=== PATIENT | male | born 1960 | race Caucasian/White ===

== ENCOUNTER → 2018-03-26 16:18 | Outpatient (CLI) | payer OTHER, SELFPAY ==
--- NOTE | 2018-03-26 | DI.MRI.S_ITS ---
PROCEDURE: MR LUMBAR SPINE WO CON INDICATIONS: LOW BACK PAIN. BIALTERAL LEG RADICULAR PAIN TECHNIQUE: Noncontrast sagittal T1 spin echo and T2 fast echo, sagittal STIR, axial T1 and T2 fast spin echo through the lumbar spine. In cases with scoliosis, additional coronal T2 fast spin echo may be performed. COMPARISON: None. FINDINGS: Image quality: Excellent. Alignment and Curvature: No plain films are available for comparison, for numbering purposes. Thus, for the purposes of this examination, 5 lumbar type vertebral bodies will be presumed, as denoted on the montage panel. This should be confirmed and correlated with plain films, prior to any lumbar spinal intervention. Mild grade 1 retrolisthesis of L3 on L4 is present. Mild grade 1 retrolisthesis of L5 on S1 is present. Bone Marrow: Marrow is of normal overall signal. No acute vertebral body compression fractures. Severe reactive signal within the endplates adjacent to the L3-L4 and L4-L5 intervertebral discs are of moderate reactive signal adjacent to the T12-L1 and L5-S1 intervertebral discs. Mild reactive signal adjacent to the L2-L3 intervertebral disc. Spinal Cord: Conus medullaris terminates at the L1-L2 disc space level. Visualized cord demonstrates normal signal and size. Paraspinous Soft Tissues: No paravertebral masses. L1-L2: Bilateral facet hypertrophy. No significant canal, nor foraminal stenosis. L2-L3: Disc desiccation and diffuse disc bulge. Bilateral facet hypertrophy, and ligamentum hypertrophy. Mild canal stenosis. Mild foraminal stenosis bilaterally. L3-L4: Disc desiccation and diffuse disc bulge, with superimposed right paracentral protrusion. Bilateral facet and ligamentum flavum hypertrophy. Epidural lipomatosis. Severe canal stenosis. Mild foraminal stenosis bilaterally. L4-L5: Disco loss and desiccation, as well as diffuse disc bulge/osteophyte. Bilateral facet and ligament flavum hypertrophy. Epidural lipomatosis. Severe canal stenosis. Moderate foraminal stenosis bilaterally. L5-S1: Disc height loss and desiccation, as well as diffuse disc bulge/osteophyte. Bilateral facet hypertrophy. No significant canal stenosis. Severe foraminal stenosis bilaterally, with bilateral intraforaminal L5 nerve root flattening. IMPRESSION: 1. Multilevel degenerative disc and facet disease, as well ligamentum flavum hypertrophy and epidural lipomatosis. 2. Severe canal stenoses at L3-L4 and L4-L5. 3. Multilevel foraminal stenoses, worst at L5-S1 bilaterally, where there is bilateral L5 nerve root flattening. Recommend correlation with clinical symptoms to ascertain relevance of this finding. 4. Plain films of the lumbar spine are recommended for numbering purposes, prior to any lumbar spinal intervention. Dictated by: Manju Logan M.D. on 03/27/2018 at 8:25 Approved by: Manju Logan M.D. on 03/27/2018 at 8:29
== END ==
PROVIDERS: PCP Family Medicine; Visit Provider Family Medicine
DX: M51.16 Intervertebral disc disorders with radiculopathy, lumbar region (principal); M48.061 Spinal stenosis, lumbar region without neurogenic claudication; M54.5 Low back pain
CPT/HCPCS: 72148

== ENCOUNTER 2018-06-30 06:28 | Day surgery (SDC) | payer OTHER, SELFPAY ==
[2018-06-19 12:37] VITALS: BMI 27.0
[2018-06-30] VITALS (8 sets, daily range): BP systolic 112–142; BP diastolic 79–97; PULSE 85–119; RESP 10–16; TEMP 36–36.4; O2SAT 96–98; BMI 26.4
--- NOTE | 2018-06-30 07:44 | PM.PREOP ---
Pre-operative Note Interval Note Pre-op Check: Yes History & Physical Reviewed by Physician and Yes Exam Performed Changes: No
--- NOTE | 2018-06-30 07:44 | PM.OP.1 ---
Operative Date/Time/Diagnoses Date of procedure: 06/30/18 Time of procedure: 09:54 Post-op diagnosis: same Procedure & Clinicians Procedure: L3-4 diskectomy L4-5 laminectomy Use of microscope Same procedure as scheduled: Yes Indications: [age] year old male with intractable pain from disc herniation and stenosis. They had failed conservative management and requested operative intervention. Risks and benefits of surgery were discussed and appropriate consents were obtained. Surgeon: Jed Morrow Click Yes if Unassisted: No Anesthesia Type: General Operative Notes Findings: Small bleb in the dura that was oversewn at the time of surgery. No CSF leakage. Closure Type: primary Specimen(s): none sent Estimated Blood Loss (mL): 20 Procedure in detail: Patient was brought to the operating room and intubated on the table. They were rolled over on the well-padded prone position on the Kt table. A time-out was performed. Preoperative antibiotics were given. The back was prepped and draped in standard sterile fashion. Using fluoroscopy for localization, a 6 cm incision was made in the midline. We used Bovie to dissect through the lumbodorsal fascia and then subperiosteally dissect the paraspinal muscles off the well-marked right side. A marker was placed and x-ray was taken to confirm positioning. We then brought in the microscope. A right-sided laminectomy was performed at L4-5 with combination of bur and Kerrisons. We removed a large amount of epidural lipomatosis. We reach across the opposite side and carefully depress the dura and cleared the left hand side of the canal as well. We cleared out the foramen. At the end we could pass the ball probe into the foramen and across the opposite side and L4-5 was opened. We then moved up to L3-4. A right-sided laminotomy was performed at L3-4. The dura was carefully retracted medially and the large herniated disc was exposed. Bipolar was used for hemostasis. We then performed an annulotomy with a scalpel and then a diskectomy with pituitary. The ball probe was run into the disc space to make sure there were no further loose fragments. The ball probe was run below the dura to make sure there was no further pressure on the nerves. Everything was decompressed. There was a small 1 mm bleb at the level of the L3-4 facet joint. There was no CSF leakage coming from this but we over sewed it with a 6-0 silk with no problems. The wound was irrigated. An epidural catheter was prepared with 8 mL of 0.25% Marcaine and 100 mcg of fentanyl. The dura was carefully depressed and the catheter was advanced 6 cm cephalad underneath remaining lamina without resistance. The fascia was then closed in layers. The epidural catheter was injected without complications. The catheter was removed and the fascia was oversewn. Vancomycin powder was placed in the wound. The superficial and the skin were closed. Sterile dressing was placed. Patient was rolled over extubated brought to recovery room with no complications. Complications: none Condition: stable Disposition: PACU Plan for aftercare: Outpatient. Limited activity for 6 weeks.
[2018-06-30] MEDS: LACTATED RINGERS 1,000 ML 42 ML IV ×2 (07:47→09:36)
[2018-06-30] MEDS: CEFAZOLIN 2 GM/100 ML FROZ.PIGGY IV (07:55)
--- NOTE | 2018-06-30 08:25 | SUR.OPER ---
Prone on spine table, head in foam head support, padded chest and pelvic supports, gel pad at knees, lower legs supported by pillows; nipples, genitalia and toes free of pressure, arms secured on foam padded arm boards at <90 degrees abduction. Tape over blanket at thigh secured to table.
[2018-06-30] MEDS: THROMBIN (BOVINE) 5,000 UNIT VIAL 5000 UNIT TOP (08:35)
[2018-06-30] MEDS: SODIUM CHLORIDE 0.9% 1,000 ML, GENTAMICIN 80 MG IRR (08:35)
[2018-06-30] MEDS: VANCOMYCIN 1,000 MG VIAL 1000 MG TOP (08:36)
[2018-06-30] MEDS: BUPIVACAINE 0.25% (PF) 8 ML, fentaNYL 100 MCG INJ (08:39)
== END 2018-06-30 10:57 | disposition home or self-care (01) ==
PROVIDERS: PCP Family Medicine; Visit Provider Orthopaedic Surgery
PROC: (CPT 63047; principal; 2018-06-30 07:45)
DX: M51.16 Intervertebral disc disorders with radiculopathy, lumbar region (principal); M48.062 Spinal stenosis, lumbar region with neurogenic claudication; I10 Essential (primary) hypertension; F17.210 Nicotine dependence, cigarettes, uncomplicated
CPT/HCPCS: 63047; 63030; 76001; J0690; J1100; J2405; J2704; J3010

== ENCOUNTER → 2020-03-22 10:45 | Outpatient (CLI) | payer OTHER, SELFPAY ==
--- NOTE | 2020-03-22 | DI.RAD.S_ITS ---
PROCEDURE: XR HIP W PEL IF DONE LT 2V INDICATIONS: LEFT HIP FEMUR PAIN TECHNIQUE: AP pelvis with lateral view(s) of the left hip(s). COMPARISON: None. FINDINGS: Bones: No fractures or dislocations. Pelvic ring appears intact. No suspicious bony lesions. Mild osseous hypertrophy noted in the left hip compatible with osteoarthritis. Lower lumbar spine degenerative disc disease and facet arthropathy. Soft tissues: The visualized bowel gas pattern is normal. No suspicious soft tissue calcifications. IMPRESSION: 1. Mild left hip osteoarthritis. 2. Lower lumbar spine degenerative disc disease and facet arthropathy. Dictated by: Dede Mejia MD, PhD on 03/22/2020 at 17:37 Approved by: Dede Mejia MD, PhD on 03/22/2020 at 17:38
--- NOTE | 2020-03-22 | DI.RAD.S_ITS ---
PROCEDURE: XR FEMUR LT MIN 2V INDICATIONS: LEG PAIN TECHNIQUE: 2 views of the femur were acquired. COMPARISON: None. FINDINGS: Bones: No fractures or dislocations. No suspicious bony lesions. Mild left hip osteoarthritic change. Soft tissues: No suspicious soft tissue calcifications or masses. IMPRESSION: 1. No acute osseous lesion. If symptoms and/or clinical suspicion for pathology persists, further assessment with repeat radiographs (7-10 days) or advanced imaging (e.g. CT, MRI or bone scan) may be helpful. 2. Mild left hip osteoarthritis. Dictated by: Dede Mejia MD, PhD on 03/22/2020 at 17:46 Approved by: Dede Mejia MD, PhD on 03/22/2020 at 17:46
== END ==
PROVIDERS: PCP Family Medicine; Referring Provider Family Medicine; Visit Provider Family Medicine
DX: M25.552 Pain in left hip (principal); M16.12 Unilateral primary osteoarthritis, left hip; M51.36 Other intervertebral disc degeneration, lumbar region; M47.816 Spondylosis without myelopathy or radiculopathy, lumbar region
CPT/HCPCS: 73502; 73552

== ENCOUNTER → 2020-04-27 15:23 | Outpatient (CLI) | payer OTHER, SELFPAY | PROVIDERS: PCP Family Medicine; Referring Provider Family Medicine; Visit Provider Orthopaedic Surgery | DX: M25.552 Pain in left hip (principal); Z53.20 Procedure and treatment not carried out because of patient's decision for unspecified reasons ==